=== PATIENT | male | born 1935 | race Caucasian/White ===

== ENCOUNTER 2023-06-22 08:48 | Outpatient (CLI) | payer OTHER ==
[~2023-06-22] VITALS: Ht 182.9 cm; Wt 95.3 kg
[2023-06-22] MEDS: albuterol 2.5 MG/3 ML nebule NEB ONE (09:27)
[2023-06-22 09:28] VITALS: PULSE 85; RESP 16; O2SAT 97
[2023-06-22 11:01] LABS: BASOPHILS % (AUTO) 0.3 % (0-1); EOSINOPHILS % (AUTO) 0.4 % (0-6); HEMATOCRIT 31.2 % (42.0-52.0); HEMOGLOBIN 10.2 g/dl (14.0-17.9); LYMPHOCYTES # (AUTO) 1.7 X10'3 (1.1-4.8); LYMPHOCYTES % (AUTO) 18.7 % (21-51); MEAN CORPUSCULAR HGB CONC 32.5 g/dL (33.0-36.5); MEAN CORPUSCULAR VOLUME 89.2 FL (78-98); MONOCYTES % (AUTO) 22.9 % (2-12); NEUTROPHILS # (AUTO) 5.1 X10'3 (1.8-7.7); NEUTROPHILS % (AUTO) 57.7 % (42-75); RED CELL DISTRIBUTION WIDTH 16.4 % (11.5-14.5); WHITE BLOOD COUNT 8.9 X10'3 (4.5-11.0)
[2023-06-22 11:03] LABS: BILIRUBIN,URINE NEGATIVE (Neg); CLARITY,URINE CLEAR (Clear); COLOR,URINE YELLOW (Yellow); GLUCOSE, URINE NEGATIVE (Neg); KETONES,URINE NEGATIVE (Neg); LEUKOCYTE ESTERASE ,URINE NEGATIVE (Neg); NITRITES, URINE NEGATIVE (Neg); OCCULT BLOOD,URINE TRACE-INTACT (Neg); PH,URINE 5.5 (4.8-8.0); PROTEIN,URINE NEGATIVE (Neg); UROBILINOGEN,URINE 0.2 E.U/dL (0.2-1.0)
[2023-06-22 11:11] LABS: UA COLLECTION TYPE CLN CATCH MIDSTREAM
[2023-06-22 11:16] LABS: HYALINE CASTS >30 /LPF (NEGATIVE); MUCUS STRANDS MANY /LPF (Neg)
[2023-06-22 11:18] LABS: BACTERIA,URINE FEW /HPF (Neg); SQUAMOUS EPITHELIAL CELL,UR FEW /LPF (FEW)
[2023-06-22 11:23] LABS: WBC,URINE 0-4 /HPF (0-4)
[2023-06-22 11:52] LABS: PLATELET COUNT 56 X10'3 (140-440)
[2023-06-22 12:05] LABS: ALANINE AMINOTRANSFERASE 18 U/L (12-78); ALBUMIN 3.4 G/DL (3.4-5.0); ALBUMIN/GLOBULIN RATIO 0.8 (1.1-1.5); ALKALINE PHOSPHATASE 64 IU/L (46-116); ANION GAP 12 (8-16); ASPARTATE AMINO TRANSFERASE 22 U/L (10-37); BILIRUBIN,TOTAL 0.7 MG/DL (0.1-1.0); BLOOD UREA NITROGEN 21 MG/DL (7-18); BUN/CREATININE RATIO 16.8 (10.0-20.0); CALCIUM 8.8 MG/DL (8.5-10.1); CHLORIDE 106 MMOL/L (99-107); CREATININE 1.25 MG/DL (0.60-1.10); GLUCOSE 114 MG/DL (70-104); POTASSIUM 3.8 MMOL/L (3.5-5.1); SODIUM 143 MMOL/L (135-145); TOTAL CARBON DIOXIDE 24.8 MMOL/L (24-32); TOTAL PROTEIN 7.6 G/DL (6.4-8.2); eCRCL 47 ML/MIN; eGFR 55 ML/MIN
[2023-06-22 12:16] LABS: TOTAL CELLS COUNTED 100
[2023-06-22 12:18] LABS: HYPOCHROMASIA 1+; STOMATOCYTES FEW
[2023-06-22 12:19] LABS: ANISOCYTOSIS 1+
[2023-06-22 12:20] LABS: ELLIPTOCYTES FEW
[2023-06-22 12:24] LABS: LARGE PLATELETS FEW; SCHISTOCYTES FEW
[2023-06-22 12:25] LABS: PLATELET ESTIMATE DECREASED
[2023-06-22 12:27] LABS: FREE T4 (FREE THYROXINE) 1.09 NG/DL (0.73-1.40); THYROID STIMULATING HORMONE 1.39 ulU/ml (0.34-4.50)
== END 2023-06-22 23:59 | disposition home or self-care (01) ==
LOC: RT 08:48
PROVIDERS: ATTEND Chiropractor
DX: I08.0 Rheumatic disorders of both mitral and aortic valves (principal); I25.10 Atherosclerotic heart disease of native coronary artery without angina pectoris; J84.10 Pulmonary fibrosis, unspecified; E11.9 Type 2 diabetes mellitus without complications; R94.2 Abnormal results of pulmonary function studies
CPT/HCPCS: 36415; 80053; 81001; 84439; 84443; 84481; 85007; 85025; 93306; 94060; 94760; J7040

== ENCOUNTER 2023-08-02 10:31 | Outpatient (CLI) | payer OTHER | END 2023-08-02 23:59 | disposition home or self-care (01) | LOC: VAS 10:31 | PROVIDERS: ATTEND Chiropractor | DX: I73.9 Peripheral vascular disease, unspecified (principal) | CPT/HCPCS: 93922 ==